=== PATIENT | male | born 1980 | race Hispanic/Latino ===

== ENCOUNTER 2019-04-10 20:34 | Emergency (ER) | payer SELFPAY ==
--- NOTE | 2019-04-10 20:51 | ER ---
Nurse's Notes [facility] Name: Davide Tobar Age: 38 yrs Sex: Male : 1980 Arrival Date: 04/10/2019 Time: 20:39 Bed 12 Private MD: Diagnosis: Otitis media, unspecified, left ear;Unspecified otitis externa, left ear Presentation: 04/10 20:40 Presenting complaint: Patient states: Report ear infection on the left side. Patient hb report a previous infection on the right side that had subside and now move to the left ear. Transition of care: patient was not received from another setting of care. Onset of symptoms is unknown. Risk Assessment: Do you want to hurt yourself or someone else? Patient reports no desire to harm self or others. Initial Sepsis Screen: Does the patient meet any 2 criteria? No. Patient's initial sepsis screen is negative. Does the patient have a suspected source of infection? No. Patient's initial sepsis screen is negative. Care prior to arrival: None. 20:40 Method Of Arrival: Ambulatory hb 20:40 Acuity: GABY 4 hb Triage Assessment: 20:48 General: Appears in no apparent distress. comfortable, obese, well groomed, well hb developed, well nourished, Behavior is calm, cooperative, appropriate for age. Pain: Complains of pain in left ear. EENT: Tympanic membrane reddened on left ear. Neuro: Level of Consciousness is awake, alert, obeys commands, Oriented to person, place, time, situation, Appropriate for age Moves all extremities. Full function Speech is normal, Facial symmetry appears normal. Cardiovascular: Capillary refill < 3 seconds Patient's skin is warm and dry. Respiratory: Airway is patent Respiratory effort is even, unlabored. GI: Abdomen is non-distended. : No signs and/or symptoms were reported regarding the genitourinary system. Derm: No signs and/or symptoms reported regarding the dermatologic system. Musculoskeletal: No signs and/or symptoms reported regarding the musculoskeletal system. Historical: - Allergies: 20:42 No Known Allergies; hb - Home Meds: 20:42 None [Active]; hb - PMHx: 20:42 None; hb - PSHx: 20:42 None; hb - Immunization history:: Adult Immunizations up to date. - Social history:: Smoking status: Patient/guardian denies using tobacco, Patient uses alcohol, occasionally. Patient/guardian denies using street drugs, IV drugs. - Ebola Screening: : Patient negative for fever greater than or equal to 101.5 degrees Fahrenheit, and additional compatible Ebola Virus Disease symptoms Patient denies exposure to infectious person Patient denies travel to an Ebola-affected area in the 21 days before illness onset. Screenin:48 Abuse screen: Denies threats or abuse. Denies injuries from another. Nutritional hb screening: No deficits noted. Tuberculosis screening: No symptoms or risk factors identified. Fall Risk None identified. Assessment: 20:56 General: Appears See triage assessment. Patient DC home. Patient agree with the POC and ao to follow up with PCP. No questions at this moment. Vital Signs: 20:43 BP 143 / 98; Pulse 114; Resp 20; Temp 98.6(O); Pulse Ox 95% ; Weight 89.36 kg; Height 5 hb ft. 6 in. (167.64 cm); Pain 10/10; 20:43 Body Mass Index 31.80 (89.36 kg, 167.64 cm) hb ED Course: 20:39 Patient arrived in ED. cf2 20:42 Triage completed. hb 20:47 Gabby Woodard F[facility]-C [facility]. kb 20:47 Arsalan Gaston MD is Attending Physician. kb 20:48 Arm band placed on Patient placed in an exam room, on pulse oximetry, Patient notified hb of wait time. 20:49 Patient has correct armband on for positive identification. Pulse ox on. NIBP on. hb 20:50 Cindy Paredes, RN is Primary Nurse. hb 20:55 No provider procedures requiring assistance completed. Patient did not have IV access ao during this emergency room visit. Administered Medications: No medications were administered Outcome: 20:50 Discharge ordered by . kb 20:55 Discharged to home ambulatory. ao 20:55 Condition: stable 20:55 Discharge instructions given to patient, Instructed on discharge instructions, follow up and referral plans. Demonstrated understanding of instructions, follow-up care, medications, Prescriptions given X 2. 20:57 Patient left the ED. ao Signatures: Gabby Woodard FNP-C FNP-Ckb Ortiz, Alex, RN RN ao Cindy Paredes RN RN hb Wheatley, Celesta cf2
--- NOTE | 2019-04-10 20:51 | EDPHYS ---
Physician Documentation [facility] Name: Davide Tobar Age: 38 yrs Sex: Male : 1980 Arrival Date: 04/10/2019 Time: 20:39 Bed 12 Private MD: ED Physician Arsalan Gaston HPI: 04/10 20:58 This 38 yrs old Male presents to ER via Ambulatory with complaints of Ear Pain.kb 20:58 The patient presents with pain, moderate. The complaints affect the left ear. Onset: kb The symptoms/episode began/occurred 2 day(s) ago. Modifying factors: The symptoms are alleviated by nothing, the symptoms are aggravated by nothing. Associated signs and symptoms: The patient has no apparent associated signs or symptoms. Severity of symptoms: At their worst the symptoms were moderate in the emergency department the symptoms are unchanged. The patient has not experienced similar symptoms in the past. The patient has not recently seen a physician. Historical: - Allergies: 20:42 No Known Allergies; hb - Home Meds: 20:42 None [Active]; hb - PMHx: 20:42 None; hb - PSHx: 20:42 None; hb - Immunization history:: Adult Immunizations up to date. - Social history:: Smoking status: Patient/guardian denies using tobacco, Patient uses alcohol, occasionally. Patient/guardian denies using street drugs, IV drugs. - Ebola Screening: : Patient negative for fever greater than or equal to 101.5 degrees Fahrenheit, and additional compatible Ebola Virus Disease symptoms Patient denies exposure to infectious person Patient denies travel to an Ebola-affected area in the 21 days before illness onset. ROS: 20:53 Constitutional: Negative for fever, chills, and weight loss, Neck: Negative for injury, kb pain, and swelling, Cardiovascular: Negative for chest pain, palpitations, and edema, Respiratory: Negative for shortness of breath, cough, wheezing, and pleuritic chest pain, Abdomen/GI: Negative for abdominal pain, nausea, vomiting, diarrhea, and constipation, MS/Extremity: Negative for injury and deformity, Skin: Negative for injury, rash, and discoloration, Neuro: Negative for headache, weakness, numbness, tingling, and seizure. 20:53 ENT: Positive for ear pain. Exam: 20:53 Constitutional: This is a well developed, well nourished patient who is awake, alert, kb and in no acute distress. Head/Face: Normocephalic, atraumatic. Chest/axilla: Normal chest wall appearance and motion. Nontender with no deformity. No lesions are appreciated. Cardiovascular: Regular rate and rhythm with a normal S1 and S2. No gallops, murmurs, or rubs. Normal PMI, no JVD. No pulse deficits. Respiratory: Lungs have equal breath sounds bilaterally, clear to auscultation and percussion. No rales, rhonchi or wheezes noted. No increased work of breathing, no retractions or nasal flaring. Abdomen/GI: Soft, non-tender, with normal bowel sounds. No distension or tympany. No guarding or rebound. No evidence of tenderness throughout. Back: No spinal tenderness. No costovertebral tenderness. Full range of motion. Skin: Warm, dry with normal turgor. Normal color with no rashes, no lesions, and no evidence of cellulitis. MS/ Extremity: Pulses equal, no cyanosis. Neurovascular intact. Full, normal range of motion. Neuro: Awake and alert, GCS 15, oriented to person, place, time, and situation. Cranial nerves II-XII grossly intact. Motor strength 5/5 in all extremities. Sensory grossly intact. Cerebellar exam normal. Normal gait. 20:53 ENT: External ear(s): are unremarkable, Ear canal(s): swelling, that is moderate, of the left canal, TM's: erythema, that is marked, on the left, Nose: is normal. Vital Signs: 20:43 BP 143 / 98; Pulse 114; Resp 20; Temp 98.6(O); Pulse Ox 95% ; Weight 89.36 kg; Height 5 hb ft. 6 in. (167.64 cm); Pain 10/10; 20:43 Body Mass Index 31.80 (89.36 kg, 167.64 cm) hb MDM: 20:49 Patient medically screened. kb 20:51 Data reviewed: vital signs, nurses notes. Data interpreted: Pulse oximetry: on room air kb is 95 %. Interpretation: normal. Counseling: I had a detailed discussion with the patient and/or guardian regarding: the historical points, exam findings, and any diagnostic results supporting the discharge/admit diagnosis, the need for outpatient follow up, a family practitioner, to return to the emergency department if symptoms worsen or persist or if there are any questions or concerns that arise at home. Administered Medications: No medications were administered Disposition: 04/11 05:11 Co-signature as Attending Physician, Arsalan Gaston MD Available for consultation at ps1 all times . Disposition: 04/10/19 20:50 Discharged to Home. Impression: Otitis media, unspecified, left ear, Unspecified otitis externa, left ear. - Condition is Stable. - Discharge Instructions: Otitis Externa, [id number], Otitis Media, Adult, [id number], Ear Drops, Adult, [id number]. - Prescriptions for Cortisporin 3.5- 10,000-1 mg/mL-unit/mL-% Otic solution - instill 4 drop by OTIC route 3 times per day for 7 days; 1 bottle. Amoxicillin 875 mg Oral Tablet - take 1 tablet by ORAL route every 12 hours for 10 days; 20 tablet. - Medication Reconciliation Form, Thank You Letter, Antibiotic Education, Prescription Opioid Use form. - Follow up: Emergency Department; When: As needed; Reason: Worsening of condition. Follow up: Private Physician; When: 2 - 3 days; Reason: Recheck today's complaints, Continuance of care, Re-evaluation by your physician. Signatures: Gabby Woodard FNP-C FNP-Ckb Jose Batres, RN Cindy Mcfarlane RN RN hb Singer, Phillip, MD MD ps1 Corrections: (The following items were deleted from the chart) 04/10 20:57 20:50 04/10/2019 20:50 Discharged to Home. Impression: Otitis media, unspecified, left ao ear; Unspecified otitis externa, left ear. Condition is Stable. Forms are Medication Reconciliation Form, Thank You Letter, Antibiotic Education, Prescription Opioid Use. Follow up: Emergency Department; When: As needed; Reason: Worsening of condition. Follow up: Private Physician; When: 2 - 3 days; Reason: Recheck today's complaints, Continuance of care, Re-evaluation by your physician. kb
[2019-04-10 21:08] VITALS: BP 143/98; TEMP 98.6; O2SAT 95
== END 2019-04-10 20:57 | disposition home or self-care (01) ==
LOC: ER 20:34
DX: H66.92 Otitis media, unspecified, left ear (principal); H60.92 Unspecified otitis externa, left ear
CPT/HCPCS: 99283